=== PATIENT | female | born 1960 | race Caucasian/White ===

== ENCOUNTER 2017-01-19 16:10 | Emergency (ER) | payer OTHER ==
[2017-01-19 16:21] VITALS: BP 136/71
--- NOTE | 2017-01-19 16:28 | EDM.PDOC ---
ED HPI GENERAL MEDICAL PROBLEM - General Chief Complaint: Skin Complaint Stated Complaint: PAIN/ITCHY BODY Time Seen by Provider: 01/19/17 16:22 Source of Information: Reports: Patient History Limitations: Reports: No Limitations - History of Present Illness INITIAL COMMENTS - FREE TEXT/NARRATIVE: HISTORY AND PHYSICAL: 56-year-old female with complaints of a rash History of present illness: 86-year-old female presents to the emergency room today with complaints of a rash to her upper extremities, chest, and lower extremities. Patient was on vacation in [facility] and was exposed to sun, reports that she has a rash to the skin areas which were exposed. Reports that she had a similar experience where she had a "sun rash" he was instructed to start Zyrtec [id number]. States that prior to her trip to [facility] she did start Zyrtec [id number] as prophylactic treatment as she knew she would not be able to avoid the sun. Besides the Zyrtec she has taken some topical Benadryl which has not alleviated any of her symptoms. Currently denies any chest pain, shortness of breath, fever, chills, genitourinary or gastrointestinal symptoms. Review of systems: As per history of present illness and below otherwise all systems reviewed and negative. Past medical history: As per history of present illness and as reviewed below otherwise noncontributory. Surgical history: As per history of present illness and as reviewed below otherwise noncontributory. Social history: No reported history of drug or alcohol abuse. Family history: As per history of present illness and as reviewed below otherwise noncontributory. Physical exam: Gen.: Nontoxic appearing 56-year-old female. Able to speak in [place] systems without shortness of breath. Answers questions appropriately. Alert and oriented. HEENT: Atraumatic, normocephalic, pupils reactive, negative for conjunctival pallor or scleral icterus, mucous membranes moist, throat clear, neck supple, nontender, trachea midline. Lungs: Lungs sound clear with the exception of the right posterior base which does have mild wheezing. breath sounds equal bilaterally, chest nontender. Heart: S1S2, regular, negative for clicks, rubs, or JVD. Abdomen: Soft, nondistended, nontender. Negative for masses or hepatosplenomegaly. Negative for costovertebral tenderness. Pelvis: Stable nontender. Genitourinary: Deferred. Rectal: Deferred. Skin: Nonspecific red maculopapular rash to face, neck chest, upper back, upper extremities bilaterally, lower extremities bilaterally. Areas in which her skin was covered with her bathing suit is not affected. Extremities: Atraumatic, negative for cords or calf pain. Neurovascular unremarkable. Neuro: Awake, alert, oriented. Cranial nerves II through XII unremarkable. Cerebellum unremarkable. Motor and sensory unremarkable throughout. Exam nonfocal. Diagnostics: None Therapeutics: Offered IM Solu-Medrol and the patient declined as she felt that the oral steroids would be sufficient Impression: Dermatitis related to sun exposure Plan: 1. Please continue the [id number] Zyrtec as directed on the bottle 2. Please take the prescribed Medrol Dosepak as directed on the package 3. Avoid any hot showers, bath, hot tubs as this may irritate her skin more and cause more discomfort. Apply cool cloth to area of discomfort for symptomatic relief. 4. Follow-up with your primary healthcare provider 1-2 days if the symptoms do not improve. May return to the emergency room as needed as discussed Definitive disposition and diagnosis as appropriate pending reevaluation and review of above. - Related Data Allergies Allergy/AdvReac Type Severity Reaction Status Date / Time No Known Allergies Allergy Verified 10/09/13 09:41 Home Meds: Home Meds Cetirizine [ZyrTEC] 10 mg PO DAILY 01/19/17 [History] Fluticasone Propionate [Flonase] 2 spray EFREM DAILY 01/19/17 [History] methylPREDNISolone [Medrol] 4 mg PO ASDIRECTED #1 dospk 01/19/17 [Rx] ED ROS GENERAL - Review of Systems Review Of Systems: See Below ED EXAM, SKIN/RASH Exam: See Below (The dictation) Course - Vital Signs Last Recorded V/S: Last Vital Signs Temp 96.9 F 01/19/17 16:16 Pulse 79 01/19/17 16:16 Resp 18 01/19/17 16:16 BP 136/71 01/19/17 16:16 Pulse Ox 98 01/19/17 16:16 Departure - Departure Time of Disposition: 16:56 Disposition: Home, Self-Care 01 Condition: Good Clinical Impression: Dermatitis - Discharge Information Prescriptions: methylPREDNISolone [Medrol] 4 mg PO ASDIRECTED #1 dospk Instructions: Rash Referrals: Graham Robles MD [Primary Care Provider] - Forms: ED Department Discharge
== END 2017-01-19 17:07 | disposition home or self-care (01) ==
LOC: MW.ED 16:10
DX: L57.8 Other skin changes due to chronic exposure to nonionizing radiation (principal); Z79.899 Other long term (current) drug therapy; X32.XXXA Exposure to sunlight, initial encounter
CPT/HCPCS: 99282

== ENCOUNTER 2018-01-14 07:23 | Emergency (ER) | payer OTHER ==
[2018-01-14] MEDS ORDERED: Sodium Chloride 0.9% 1,000 ML IV ONE (07:34)
[2018-01-14] MEDS ORDERED: Ketorolac 30 MG/ML SDV IVPUSH ONE (07:34)
--- NOTE | 2018-01-14 07:40 | EDM.PDOC ---
ED HPI GENERAL MEDICAL PROBLEM - General Chief Complaint: Flank Pain Stated Complaint: BACK PAIN Time Seen by Provider: 01/14/18 07:33 - History of Present Illness INITIAL COMMENTS - FREE TEXT/NARRATIVE: HISTORY AND PHYSICAL: History of present illness: Patient's 57-year-old female presents with concern of left flank pain she recently had a respiratory tract infection for which she was treated with Z-Jose Eduardo she denies chest pain or shortness of breath she denies nausea or vomiting she has no reported urinary tract infection symptoms and denies trauma. Review of systems: As per history of present illness and below otherwise all systems reviewed and negative. Past medical history: As per history of present illness and as reviewed below otherwise noncontributory. Surgical history: As per history of present illness and as reviewed below otherwise noncontributory. Social history: No reported history of drug or alcohol abuse. Family history: As per history of present illness and as reviewed below otherwise noncontributory. Physical exam: HEENT: Atraumatic, normocephalic, pupils reactive, negative for conjunctival pallor or scleral icterus, mucous membranes moist, throat clear, neck supple, nontender, trachea midline. Lungs: Clear to auscultation, breath sounds equal bilaterally, chest nontender. Heart: S1S2, regular, negative for clicks, rubs, or JVD. Abdomen: Soft, nondistended, nontender. Negative for masses or hepatosplenomegaly. Left-sided costovertebral tenderness. Pelvis: Stable nontender. Genitourinary: Deferred. Rectal: Deferred. Extremities: Atraumatic, negative for cords or calf pain. Neurovascular unremarkable. Neuro: Awake, alert, oriented. Cranial nerves II through XII unremarkable. Cerebellum unremarkable. Motor and sensory unremarkable throughout. Exam nonfocal. Diagnostics: CBC CMP UA chest x-ray CT abdomen and pelvis Therapeutics: Saline 1 L bolus oral 30 mg IV Impression: #1 acute left flank pain Definitive disposition and diagnosis as appropriate pending reevaluation and review of above. - Related Data Allergies Allergy/AdvReac Type Severity Reaction Status Date / Time No Known Allergies Allergy Verified 01/14/18 07:56 Home Meds: Home Meds L.acidoph,Paracasei, B.lactis [Probiotic] 1 cap PO DAILY 01/14/18 [History] Omeprazole 1 cap PO DAILY 01/14/18 [History] Past Medical History - Infectious Disease History Infectious Disease History: Reports: Shingles Other Infectious Disease History: questionable shingles outbreak - Past Surgical History Other HEENT Surgeries/Procedures: sinus surgery GI Surgical History: Reports: Cholecystectomy Social & Family History - Family History Family Medical History: Noncontributory - Caffeine Use Caffeine Use: Reports: Coffee ED ROS GENERAL - Review of Systems Review Of Systems: ROS reveals no pertinent complaints other than HPI. ED EXAM, GENERAL - Physical Exam Exam: See Below (See dictation) Course - Vital Signs Text/Narrative:: Discussed with patient nondiagnostic testing at this point including CT abdomen and pelvis as well as routine labs patient does not have any history of diarrhea fever chills or anything that would be consistent with colitis or other causes. She'll be discharged with follow-up as discussed and return as needed as discussed. Last Recorded V/S: Last Vital Signs Temp 36.1 C 01/14/18 07:23 Pulse 76 01/14/18 08:14 Resp 18 01/14/18 08:14 BP 141/69 H 01/14/18 08:14 Pulse Ox 95 01/14/18 08:14 - Orders/Labs/Meds Orders: Active Orders 24 hr Category Date Time Status Abdomen Pelvis wo Cont [CT] Stat Exams 01/14/18 07:34 Taken Chest 1V Frontal [CR] Stat Exams 01/14/18 07:36 Taken CULTURE URINE [RM] Stat Lab 01/14/18 07:40 Received UA W/MICROSCOPIC [URIN] Stat Lab 01/14/18 07:40 Ordered Labs: Laboratory Tests 01/14/18 01/14/18 01/14/18 Range/Units 07:40 07:46 07:46 WBC 7.40 (4.0-11.0) K/uL RBC 3.79 L (4.30-5.90) M/uL Hgb 12.0 (12.0-16.0) g/dL Hct 35.9 L (36.0-46.0) % MCV 94.7 (80.0-98.0) fL MCH 31.7 (27.0-32.0) pg MCHC 33.4 (31.0-37.0) g/dL RDW Std Deviation 46.0 (28.0-62.0) fl RDW Coeff of Dom 13 (11.0-15.0) % Plt Count 220 (150-400) K/uL MPV 10.70 (7.40-12.00) fL Neut % (Auto) 59.3 (48.0-80.0) % Lymph % (Auto) 29.9 (16.0-40.0) % [place] % (Auto) 8.5 (0.0-15.0) % Eos % (Auto) 1.9 (0.0-7.0) % Baso % (Auto) 0.4 (0.0-1.5) % Neut # (Auto) 4.4 (1.4-5.7) K/uL Lymph # (Auto) 2.2 (0.6-2.4) K/uL [place] # (Auto) 0.6 (0.0-0.8) K/uL Eos # (Auto) 0.1 (0.0-0.7) K/uL Baso # (Auto) 0.0 (0.0-0.1) K/uL Nucleated RBC % 0.0 /100WBC Nucleated RBCs # 0 K/uL Sodium 137 (136-145) mmol/L Potassium 3.7 (3.5-5.1) mmol/L Chloride 103 (98-107) mmol/L Carbon Dioxide 25.2 (21.0-32.0) mmol/L BUN 13 (7.0-18.0) mg/dL Creatinine 1.1 H (0.6-1.0) mg/dL Est Cr Clr Drug Dosing 51.39 mL/min Estimated GFR (MDRD) 51.4 ml/min Glucose 164 H (74-106) mg/dL Calcium 9.0 (8.5-10.1) mg/dL Total Bilirubin 0.5 (0.2-1.0) mg/dL AST 12 L (15-37) IU/L ALT 18 (14-63) IU/L Alkaline Phosphatase 97 (46-116) U/L Total Protein 7.2 (6.4-8.2) g/dL Albumin 3.8 (3.4-5.0) g/dL Globulin 3.4 (2.0-3.5) g/dL Albumin/Globulin Ratio 1.1 L (1.3-2.8) Urine Color YELLOW Urine Appearance CLEAR Urine pH 5.5 (5.0-8.0) Ur Specific [place] <= 1.005 (1.001-1.035) Urine Protein NEGATIVE (NEGATIVE) mg/dL Urine Glucose (UA) NEGATIVE (NEGATIVE) mg/dL Urine Ketones NEGATIVE (NEGATIVE) mg/dL Urine Occult Blood NEGATIVE (NEGATIVE) Urine Nitrite NEGATIVE (NEGATIVE) Urine Bilirubin NEGATIVE (NEGATIVE) Urine Urobilinogen 0.2 (<2.0) EU/dL Ur Leukocyte Esterase NEGATIVE (NEGATIVE) Urine RBC NONE SEEN (0-2/HPF) Urine WBC 0-2 (0-5/HPF) Ur Epithelial Cells FEW (NONE-FEW) Urine Bacteria FEW (NEGATIVE) Meds: Medications Discontinued Medications Generic Name Dose Route Start Last Admin Trade Name Freq PRN Reason Stop Dose Admin Sodium Chloride 1,000 mls @ 999 mls/hr 01/14/18 07:34 01/14/18 07:52 Normal Saline IV 01/14/18 08:34 999 mls/hr BOLUS ONE Administration Ketorolac Tromethamine 30 mg 01/14/18 07:34 01/14/18 07:51 Toradol IVPUSH 01/14/18 07:35 30 mg ONETIME ONE Administration Departure - Departure Time of Disposition: 08:38 Disposition: Home, Self-Care 01 Condition: Good Clinical Impression: Flank pain - Discharge Information *PRESCRIPTION DRUG MONITORING PROGRAM REVIEWED*: Not Applicable *COPY OF PRESCRIPTION DRUG MONITORING REPORT IN PATIENT COLLEEN: Not Applicable Referrals: PCP,Unknown [Primary Care Provider] - Forms: ED Department Discharge Additional Instructions: The following information is given to patients seen in the emergency department who are being discharged to home. This information is to outline your options for follow-up care. We provide all patients seen in our emergency department with a follow-up referral. The need for follow-up, as well as the timing and circumstances, are variable depending upon the specifics of your emergency department visit. If you don't have a primary care physician on staff, we will provide you with a referral. We always advise you to contact your personal physician following an emergency department visit to inform them of the circumstance of the visit and for follow-up with them and/or the need for any referrals to a consulting specialist. The emergency department will also refer you to a specialist when appropriate. This referral assures that you have the opportunity for followup care with a specialist. All of these measure are taken in an effort to provide you with optimal care, which includes your followup. Under all circumstances we always encourage you to contact your private physician who remains a resource for coordinating your care. When calling for followup care, please make the office aware that this follow-up is from your recent emergency room visit. If for any reason you are refused follow-up, please contact the [facility] emergency department at and asked to speak to the emergency department charge nurse. Motrin/Tylenol as directed continue current medications follow primary medical doctor as needed as discussed and return as needed as discussed - My Orders Last 24 Hours: My Active Orders 01/14/18 07:34 Abdomen Pelvis wo Cont [CT] Stat 01/14/18 07:36 Chest 1V Frontal [CR] Stat 01/14/18 07:40 CULTURE URINE [RM] Stat UA W/MICROSCOPIC [URIN] Stat - Assessment/Plan Last 24 Hours: My Active Orders 01/14/18 07:34 Abdomen Pelvis wo Cont [CT] Stat 01/14/18 07:36 Chest 1V Frontal [CR] Stat 01/14/18 07:40 CULTURE URINE [RM] Stat UA W/MICROSCOPIC [URIN] Stat
[2018-01-14 09:15] VITALS: BP 141/72
--- NOTE | 2018-01-15 14:00 | CR ---
EXAM DATE: 01/14/18 PATIENT'S AGE: 57 Patient: SHERI SIMMONS Facility: [place], [place] Site . Site : 1960 Study: XRay Chest [id number]/19/2018 8:07:03 AM Ordering Physician: Dora Askew Final Report: INDICATION: Chest pain; shortness of breath. COMPARISON: Chest radiograph March 21, 2014. TECHNIQUE: Single PA chest. FINDINGS: Normal size cardiac silhouette. Clear lung prince without evidence of acute pneumonic infiltrates or CHF. No pneumothorax or pleural effusion. No interval change. IMPRESSION: Negative PA chest. Dictated by Tomas Cyr MD @ Jan 14 2018 8:42AM (Electronic Signature) Report Signed by Proxy. [facility]
--- NOTE | 2018-01-15 14:01 | CT ---
EXAM DATE: 01/14/18 PATIENT'S AGE: 57 Patient: SHERI SIMMONS Facility: [place], [place] Site . Site : 1960 Study: CT Abdomen/Pelvis WO CONT [id number]/19/2018 8:09:57 AM Ordering Physician: Doctor Moran Final Report: INDICATION: Left flank pain. TECHNIQUE: A CT volumetric acquisition was performed of the abdomen and pelvis without IV contrast. COMPARISON: CT abdomen pelvis dated 10/14/2013. TECHNIQUE: A CT volumetric acquisition was performed of the abdomen and pelvis without IV contrast. FINDINGS: The CT images demonstrate a normal appearance of the lung bases. Within the abdomen the liver and spleen are normal size and have uniform density. Patient is status post cholecystectomy and there is pneumobilia consistent with prior sphincterotomy. There is no evidence of inflammation or mass within the pancreas or stomach. The adrenal glands have normal morphology. The kidneys are symmetric in size and there is no evidence of edema, calculus or hydronephrosis within either kidney. Mild atherosclerotic changes are evident within the aorta but there is no evidence of aneurysm or vascular dissection. There is no evidence of abdominal or pelvic retroperitoneal lymphadenopathy. The patient`s small intestine and small bowel mesentery appear normal. The colon appears normal. There is a normal appearance of the uterus and ovaries. The partially filled urinary bladder appears normal. IMPRESSION: No acute process noted within the abdomen and pelvis. In particular no evidence of renal or ureteral calculus. Please note that all CT scans at this facility use dose modulation, iterative reconstruction, and/or weight-based dosing when appropriate to reduce radiation dose to as low as reasonably achievable. Dictated by Azar Roque MD @ Jan 14 2018 8:46AM (Electronic Signature) Report Signed by Proxy. [facility]
== END 2018-01-14 09:10 | disposition home or self-care (01) ==
LOC: MW.ED 07:23
DX: R10.9 Unspecified abdominal pain (principal); Z79.899 Other long term (current) drug therapy
CPT/HCPCS: 36415; 71045; 74176; 80053; 81001; 85025; 87086; 96361; 96374; 99284; J1885; J7040; 99283